=== PATIENT | female | born 1975 | race Caucasian/White ===

== ENCOUNTER 2017-01-02 15:41 | Emergency (ER) | payer MEDICARE, MEDICAID ==
[~2017-01-02] VITALS: Ht 165.1 cm; Wt 68.0 kg
[2017-01-02 15:44] VITALS: BP 134/70; PULSE 89; RESP 16; TEMP 98.4; O2SAT 99
--- NOTE | 2017-01-02 15:53 | PD ---
Physical Exam Time Seen by Provider: 15:52 Narrative 41 y/o female here for evaluation of a sunburn for 2 days. Painful. Denies dark colored urine, n/v/d. Vital signs reviewed. Seen at triage desk. Awaiting bed placement. Data Data Last Documented VS Vital Signs Date Time Temp Pulse Resp B/P Pulse Ox O2 Delivery O2 Flow Rate FiO2 01/02/17 15:44 98.4 89 16 134/70 99 MDM Medical Record Reviewed: Yes Supervised Visit with MYRON: No Ramon Graham Jan 02, 2017 15:53
--- NOTE | 2017-01-02 16:04 | PD ---
HPI Chief Complaint: Burn Time Seen by Provider: 16:04 Travel History International Travel<30 days: No Contact w/Intl Traveler<30days: No Traveled to known affect area: No History of Present Illness HPI 41-year-old female presents to emergency Department with complaint of a sunburn to anterior bilateral lower extremities 2 days. Says she was in the sun for 6 hours the other day. Reports blistering to the left knee area that she noticed today. Reports swelling and tightness of both of her legs. Denies fever, vomiting. Denies paresthesias, loss of sensation, decreased range of motion, decreased strength to bilateral lower extremities. Has been using topical aloe vera and taking ibuprofen for symptom management. Symptoms are mild in severity. No known allergies. Has no other medical complaints. No other modifying factors or associated signs and symptoms. PFSH Past Medical History ?: Not LMP: 12/2016 Social History Tobacco Use: No Allergies-Medications (Allergen,Severity, Reaction): Coded Allergies: No Known Allergies (Unverified , 01/02/17) Reported Meds & Prescriptions Reported Meds & Active Scripts Active Ibuprofen 800 Mg Tab 800 Mg PO Q6HR PRN Silvadene Topical (Silver Sulfadiazine) 1 % Cream 1 Applic TOPICAL DIRECTED Reported Lamictal (Lamotrigine) 25 Mg Tab 25 Mg PO BID Review of Systems Except as stated in HPI: all other systems reviewed are Neg Physical Exam Narrative GENERAL: Well-nourished, well-developed female patient, in no acute distress; afebrile, nontoxic-appearing SKIN: Warm and dry. Anterior aspect of bilateral lower extremities with redness and warmth to touch; 2 fluid-filled blisters noted to the left medial knee area. Bilateral lower extremities are supple and non-tense with 2+ pedal pulses and sensory intact. Bilateral lower leg, ankle, foot nonpitting edema noted. HEAD: Atraumatic. Normocephalic. EYES: Pupils equal and round. No scleral icterus. No injection or drainage. ENT: Mucosa pink and moist. Airway patent. NECK: Trachea midline. CARDIOVASCULAR: Regular rate. RESPIRATORY: No accessory muscle use. GASTROINTESTINAL: Flat. MUSCULOSKELETAL: No obvious deformities. No clubbing. No cyanosis. No edema. NEUROLOGICAL: Awake and alert. Oriented 3. No obvious cranial nerve deficits. Motor grossly within normal limits. Normal speech. PSYCHIATRIC: Appropriate mood and affect; insight and judgment normal. Data Data Last Documented VS Vital Signs Date Time Temp Pulse Resp B/P Pulse Ox O2 Delivery O2 Flow Rate FiO2 01/02/17 15:44 98.4 89 16 134/70 99 MDM Medical Decision Making Medical Screen Exam Complete: Yes Emergency Medical Condition: Yes Medical Record Reviewed: Yes Differential Diagnosis First-degree sunburn, secondary sunburn, medical clearance Narrative Course 41-year-old female with first degree sunburn and an area of a second-degree sunburn to bilateral lower extremities. Bilateral lower extremities are supple and non-tense with 2+ pedal pulses and sensory intact. Sensation is afebrile and nontoxic-appearing. She denies fever, vomiting. Silvadene and ibuprofen prescribed for home. Instructed patient to follow up with primary care provider. Patient verbalizes understanding and agreement with treatment plan. Patient is medically cleared and stable for discharge. Discussed reasons to return to the emergency department. Patient agrees with treatment plan. The patients vital signs are stable and the patient is stable for outpatient follow- up and treatment. Patient discharged home, stable and in no acute distress. Diagnosis Primary Impression: Sunburn of first degree Additional Impression: Sunburn of second degree Referrals: Primary Care Physician Patient Instructions: General Instructions, Sunburn (ED) Additional Instructions: Ibuprofen or Tylenol as directed and as needed for pain and inflammation Silvadene cream to affected area as directed and as needed Elevate extremities to reduce inflammation Cool compresses, cool baths, ice packs as needed to reduce pain and inflammation Follow-up with primary care provider Return to the emergency department immediately for worsening of symptoms Med/Other Pt SpecificInfo: Prescription(s) given Scripts Ibuprofen 800 Mg [id number] Mg PO Q6HR PRN (PAIN) #30 TAB Ref 0 Prov:Gloria Bocanegra 01/02/17 Silver Sulfadiazine Topical (Silvadene Topical)1 % Cream1 Applic TOPICAL DIRECTED #400 GM Ref 0 Prov:Gloria Bocanegra 01/02/17 Disposition: 01 DISCHARGE HOME Condition: Stable Gloria Bocanegra Jan 02, 2017 16:04
[2017-01-02] MEDS ORDERED: IBUP800T23 PO (16:06)
[2017-01-02] MEDS ORDERED: SILV1CRE20 TOPICAL (16:06)
[2017-01-02] MEDS ORDERED: LAMO25 PO (16:09)
== END 2017-01-02 16:26 | disposition home or self-care (01) ==
LOC: NEPK 15:41
DX: L55.1 Sunburn of second degree (principal); L55.0 Sunburn of first degree
CPT/HCPCS: 99283